=== PATIENT | female | born 1950 | race Caucasian/White ===

== ENCOUNTER 2018-08-22 10:28 | Emergency (ER) | payer MEDICARE, OTHER ==
[~2018-08-22] VITALS: Ht 154.9 cm; Wt 90.7 kg
[~2018-08-22 10:28] MED LIST: AMLO10TA4 PO; ATOR40TA PO; BISA-79 RC; CLON0.1T PO; CRAN450T3 PO; DOCU100C36 PO; DULO30CA2 PO; GLIM4TAB2 PO; INSU100V9 SQ; LEVO500T75 PO; LISI-607 PO; LORA-258 PO; MAGN400O21 PO; METF500T7 PO; NA P133E RC; ONDA4TAB5 PO; OXYC-133 PO; TYL2T PO
--- NOTE | 2018-08-22 10:30 | NUR ---
KRYSTIAN [id number] [facility] C/O SHAKING AND LACK OF SLEEP X 3 DAYS AFTER SHE WAS NOT GIVEN XANAX AND TRAZODONE PER PATIENT REPORT. TO ER BED 4, HOOKED TO MONITOR, CHANGED TO GOWN, PROVIDED W WARM BLANKET, AWAITING MD DE LA CRUZ.
--- NOTE | 2018-08-22 10:50 | NUR ---
DR VELAZQUEZ AT BEDSIDE
--- NOTE | 2018-08-22 10:55 | NUR ---
PAGED DR. WALEKR. AWAITING FOR CALL ABATASNEEM.
[2018-08-22] MEDS ORDERED: ALPRAZOLAM 0.5 MG TABLET PO ONE (11:00)
[2018-08-22] MEDS ORDERED: ASPI-1152 PO (11:05)
[2018-08-22] MEDS ORDERED: ALPR2TAB7 PO (11:05)
[2018-08-22] MEDS ORDERED: CLOT15CR5 TP (11:05)
[2018-08-22] MEDS ORDERED: ESCI10TA PO (11:05)
[2018-08-22] MEDS ORDERED: TRAZ-182 PO (11:05)
[2018-08-22] MEDS ORDERED: ZOLP10TA6 PO (11:05)
[2018-08-22] MEDS ORDERED: NYST15CR TP (11:05)
[2018-08-22] MEDS ORDERED: BREX2TAB PO (11:05)
[2018-08-22] MEDS ORDERED: ALPRAZOLAM 0.5 MG TABLET ONE (11:06)
--- NOTE | 2018-08-22 11:09 | NUR ---
JAMES: JOHN AT 1215. TRIP#[id number].
--- NOTE | 2018-08-22 12:23 | NUR ---
Patient discharged to [facility] in stable condition. Written and verbal after care instructions given. Patient verbalizes understanding of instruction. PT WILL BE BROUGHT BACK TO [facility] AT [facility]. REPORT GIVEN TO KENDRA ACUÑA FOR REPORT.
[2018-08-22 12:24] VITALS: BP 138/74
== END 2018-08-22 12:26 ==
LOC: ER 10:28
DX: F13.239 Sedative, hypnotic or anxiolytic dependence with withdrawal, unspecified (principal); G47.00 Insomnia, unspecified; I10 Essential (primary) hypertension; E11.9 Type 2 diabetes mellitus without complications; M54.9 Dorsalgia, unspecified; G89.29 Other chronic pain; Z60.2 Problems related to living alone; Z79.82 Long term (current) use of aspirin; Z79.4 Long term (current) use of insulin; Z88.1 Allergy status to other antibiotic agents

== ENCOUNTER 2019-05-07 00:30 | Emergency (ER) | payer MEDICARE ==
[~2019-05-07] VITALS: Ht 170.2 cm; Wt 88.9 kg
[~2019-05-07 00:30] MED LIST changes: +ALPR2TAB7 PO; -AMLO10TA4 PO; +ASPI-1152 PO; -BISA-79 RC; +BREX2TAB PO; -CLON0.1T PO; +CLOT15CR5 TP; -CRAN450T3 PO; -DULO30CA2 PO; +ESCI10TA PO; -GLIM4TAB2 PO; +GLIM4TAB37 PO; -LEVO500T75 PO; -LORA-258 PO; -MAGN400O21 PO; +METF500T20 PO; -METF500T7 PO; -NA P133E RC; +NYST15CR TP; -ONDA4TAB5 PO; -OXYC-133 PO; +TRAZ-182 PO; -TYL2T PO; +ZOLP10TA6 PO
[2019-05-07] MEDS ORDERED: ACETAMINOPHEN ES 500 MG TABLET ONE (00:44)
[2019-05-07] MEDS ORDERED: ALPRAZOLAM 0.5 MG TABLET ONE (00:44)
--- NOTE | 2019-05-07 00:44 | NUR ---
PT KRYSTIAN C/O "SHAKING FOR 4 YEARS, GETTING WORSE TODAY" -SOB AOX4. VSS. NAD NOTED. RESP EVEN AND UNLABORED. PT ON MONITOR IN BED 3. WILL CONTINUE TO MONITOR.
--- NOTE | 2019-05-07 00:45 | NUR ---
PHLEB AT BEDSIDE FOR BLOOD DRAW
--- NOTE | 2019-05-07 00:50 | NUR ---
TECH AT BEDSIDE FOR EKG
[2019-05-07 00:51] LABS: BASOPHILS % (AUTO) 0.4 % (0.0-2.0); EOSINOPHILS % (AUTO) 0.3 % (0.0-6.0); HEMATOCRIT 37 % (33-45); HEMOGLOBIN 12.4 g/dL (11.5-14.8); LYMPHOCYTES # (AUTO) 2.6 /CMM (0.8-4.8); LYMPHOCYTES % (AUTO) 26.4 % (20.0-44.0); MEAN CORPUSCULAR HGB CONC 34 g/dl (31.0-36.0); MEAN CORPUSCULAR VOLUME 94 fL (82-100); MONOCYTES # (AUTO) 1.5 /CMM (0.1-1.30); NEUTROPHILS # (AUTO) 5.7 /CMM (1.8-8.9); NEUTROPHILS % (AUTO) 57.9 % (43.0-81.0); PLATELET COUNT (AUTO) 271 /CMM (150-450); RED BLOOD CELL COUNT(AUTO) 3.92 MIL/uL (4.0-5.2); WHITE BLOOD COUNT (AUTO) 9.8 K/uL (4.3-11.0)
[2019-05-07] MEDS ORDERED: ACETAMINOPHEN 325 MG TABLET PO ONE (01:00)
[2019-05-07] MEDS ORDERED: ALPRAZOLAM 0.5 MG TABLET PO ONE (01:00)
[2019-05-07 01:02] LABS: CALCIUM, SERUM 9.5 mg/dL (8.5-10.1); POTASSIUM 4.1 mmol/L (3.5-5.1)
--- NOTE | 2019-05-07 01:10 | NUR ---
RADIOLOGY AT BEDSIDE FOR XRAY
[2019-05-07 01:40] LABS: APPEARANCE,URINE Cloudy (CLEAR); BILIRUBIN,URINE Negative (NEGATIVE); BLOOD, URINE Small Ery/uL (NEGATIVE); COLOR,URINE Yellow (YELLOW); KETONES,URINE Negative (NEGATIVE); LEUKOCYTE ESTERASE ,URINE Large (NEGATIVE); NITRITE, URINE Negative (NEGATIVE); PH,URINE 6.5 (5.0-8.0); PROTEIN,URINE 30 mg/dl (NEGATIVE); UGLUCOSE Negative (NEGATIVE); UROBILINOGEN,URINE 0.2 EU/dL (0.2)
[2019-05-07 01:40] LABS: LYMPHOCYTES % (MANUAL) 20 % (16-48); MONOCYTES % (MANUAL) 12 % (0-11.0); NEUTROPHILS % (MANUAL) 68 (42-76)
--- NOTE | 2019-05-07 02:06 | NUR ---
[facility] ETA [id number]. #[id number]
[2019-05-07 02:13] LABS: BACTERIA,URINE Few /HPF (None Seen); SQUAMOUS EPITHELIAL CELL,UR Few /HPF (None Seen); URINE AMORPHOUS URATE Moderate /HPF (None Seen)
[2019-05-07] MEDS ORDERED: CEPHALEXIN MONOHYDRATE 500 MG CAPSULE PO ONE ×2 (02:30→02:35)
--- NOTE | 2019-05-07 03:59 | NUR ---
REPORT GIVEN TO DIANA [facility]
[2019-05-07 04:18] VITALS: BP 132/54
--- NOTE | 2019-05-07 04:21 | NUR ---
Patient discharged to home in stable condition. Written and verbal after care instructions given. Patient verbalizes understanding of instruction.
--- NOTE | 2019-05-07 04:21 | NUR ---
PICKED UP BY TRANSPORT
== END 2019-05-07 05:32 | disposition home or self-care (01) ==
LOC: ER 00:32
DX: N39.0 Urinary tract infection, site not specified (principal); F13.239 Sedative, hypnotic or anxiolytic dependence with withdrawal, unspecified; I10 Essential (primary) hypertension; G89.29 Other chronic pain; E11.9 Type 2 diabetes mellitus without complications; Z88.8 Allergy status to other drugs, medicaments and biological substances; Z60.2 Problems related to living alone; Z79.899 Other long term (current) drug therapy; Z79.82 Long term (current) use of aspirin; Z79.84 Long term (current) use of oral hypoglycemic drugs; Z79.4 Long term (current) use of insulin
CPT/HCPCS: 36415; 71045-TC; 80048-TC; 81000-TC; 82962-TC; 85025-TC; 87086-TC